=== PATIENT | female | born 1975 | race African-American/Black ===

== ENCOUNTER 2017-03-30 19:52 | Emergency (ER) | payer OTHER ==
[~2017-03-30] VITALS: Ht 167.6 cm; Wt 154.2 kg
[2017-03-31 00:57] LABS: ABSOLUTE BASOPHIL COUNT 0.1 /CUMM (0.0-0.2); ABSOLUTE EOSINOPHIL COUNT 0.4 /CUMM (0.0-0.7); ABSOLUTE GRANULOCYTE CT 3.8 /CUMM (1.4-6.5); ABSOLUTE LYMPH COUNT 2.6 /CUMM (1.2-3.4); ABSOLUTE MONOCYTE COUNT 0.4 /CUMM (0.10-0.60); BASOPHIL % 0.8 % (0.0-2.0); GRANULOCYTE % 51.8 % (42.2-75.2); HEMATOCRIT 34.4 % (37-47); MEAN CORPUSCULAR HGB CONC 32.6 G/DL (33.0-37.0); MEAN CORPUSCULAR VOLUME 82.8 FL (81.0-99.0); MEAN PLATELET VOLUME 8.8 FL (7.4-10.4); PLATELET COUNT 225 /CUMM (130-400); RBC DISTRIBUTION WIDTH 15.7 % (11.5-14.5); RED BLOOD CELL CT 4.16 /CUMM (4.20-5.40); WHITE BLOOD CELL COUNT 7.2 /CUMM (4.8-10.8)
--- NOTE | 2017-03-31 01:18 | ED GENERAL ADULT ---
History of Present Illness General Chief Complaint: Dizziness Stated Complaint: LIGHTHEADED/DIZZY, HEADACHE,NAUSEA Source: patient Exam Limitations: no limitations Vital Signs & Intake/Output Vital Signs & Intake/Output Vital Signs Date Time Temp Pulse Resp B/P B/P Pulse O2 O2 Flow FiO2 Mean Ox Delivery Rate 03/304 98.8 70 19 128/82 97 Room Air 03/30 2038 98.4 74 20 137/91 100 Room Air ED Intake and Output 03/31 0000 03/30 1200 Intake Total Output Total Balance Patient 340 lb Weight Weight Reported by Patient Measurement Method Allergies Coded Allergies: banana (Intermediate, ABDOMINAL CRAMPING 03/30/17) papaya (Intermediate, ABDOMINAL CRAMPING 03/30/17) Uncoded Allergies: SEASONAL (POLLEN) (03/22/11) Reconcile Medications No Known Home Medications Triage Note: TRIAGE: PT TO ER C/C HEADACHE PAIN, ONSET LAST NIGHT, INTERMITTENT SINCE ONSET. 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 FEELS THE PAIN FROM THE L OCCIPITAL REGION RADIATING UP INTO L EYE. ALSO DEVELOPED S/S OF NAUSEA AND "SHAKY ALL OVER". HAS NOT TAKEN ANY OTC PAIN MEDICATIONS. NO HX OF SIMILIAR HEADACHES. Triage Nurses Notes Reviewed? yes : No Patient currently breastfeeds: No HPI: 41-year-old otherwise healthy female presenting with gradual onset left-sided pressure-like headache that began yesterday while unpacking boxes at work, peaked throughout the night and has been gradually improving today. Headache is associated with nausea and photophobia, reports that her vision looks "bright like when you look into the sun." Denies fevers, dizziness, vomiting, diplopia, blurred vision, lightheadedness, chest pain, shortness of breath. Has not tried any pain medication for symptomatic relief. No prior history of migraines. Denies any head trauma. Past History Travel History Traveled to [place] past 21 day No Medical History Any Pertinent Medical History? 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 No Review of Systems Review of Systems Constitutional: Reports: no symptoms. EENTM: Denies: blurred vision, double vision, visual changes. Respiratory: Reports: no symptoms. Cardiovascular: Reports: no symptoms. GI: Reports: nausea. Denies: abdominal pain, vomiting. Genitourinary: Reports: no symptoms. Musculoskeletal: Reports: no symptoms. Neurological/Psychological: Reports: headache. Denies: numbness, paresthesia, tingling, tremors, weakness. 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 No CVA/TIA Diagnosis: No Severe Sepsis Present: No Septic Shock Present: No Progress Differential Diagnoses I considered the following diagnoses in my evaluation of the patient: [Tension headache versus cluster headache versus migraine versus intracranial hemorrhage versus intracranial mass.] Plan of Care: Orders Procedure Date/time Status CBC WITHOUT DIFFERENTIAL 03/31 13 Complete BASIC METABOLIC PANEL 03/31 13 Complete Laboratory Tests 03/31/17 0042: Anion Gap 7, Estimated GFR > 60, BUN/Creatinine Ratio 18.0, Glucose 85, Calcium 8.6, CBC w Diff NO MAN DIFF REQ, RBC 4.16 L, MCV 82.8, MCH 27.0, RDW 15.7 H, MPV 8.8, Gran % 51.8, Lymphocytes % 36.4, Monocytes % 6.0, Eosinophils % 5.0, Basophils % 0.8, Absolute Granulocytes 3.8, Absolute Lymphocytes 2.6, Absolute Monocytes 0.4, Absolute Eosinophils 0.4, Absolute Basophils 0.1, PUBS MCHC 32.6 L Suspicion for intracranial hemorrhage or mass is low at this time given her symptoms have been self improving and normal neurologic exam. No indication for head CT scan at this time. History and exam consistent with tension headache versus migraine. Patient with good pain relief after IV fluids, Toradol, Reglan , Benadryl. CBC and BMP unremarkable. Patient will follow up with primary care provider in a few days for reevaluation. Instructed to return to the ED sooner for any new or worsening symptoms. (ERNESTO GARZON,KEERTHI) Initial ED EKG: none Departure Departure Disposition: HOME OR SELF CARE Condition: Stable Clinical Impression Primary Impression: Headache Additional Instructions: Use ibuprofen as needed at home for headaches. Maintain adequate fluid intake to prevent dehydration can contribute to headaches. Get adequate sleep in order to help alleviate headaches. Follow up with a primary care provider in the next 2 days for reevaluation. Return to the ED for any new or worsening symptoms. Departure Forms: Customer Survey General Discharge Information Prescriptions: Current Visit Scripts No Known Home Medications Critical Care Note Critical Care Note Critical Care Time: non-applicable
[2017-03-31 01:44] VITALS: BP 117/59
== END 2017-03-31 01:46 ==
LOC: ERH 19:52
PROVIDERS: Physician Assistant
DX: R51 Headache (principal); R11.0 Nausea
CPT/HCPCS: 96361; 96374; 96375; J1200; J1885; J2765